=== PATIENT | male | born 1995 | race Hispanic/Latino ===

== ENCOUNTER 2020-10-02 02:20 | Inpatient (IN) | payer SELFPAY ==
[~2020-10-02] VITALS: Ht 167.6 cm; Wt 65.8 kg
[2020-10-02] VITALS (22 sets, daily range): BP systolic 111–140; BP diastolic 46–87
[2020-10-02] MEDS ORDERED: FENTANYL CITRATE PF 50 MCG/1 ML 2ML VIAL ONE ×2 (02:24→10:30)
[2020-10-02 02:48] LABS: BASOPHILS % (AUTO) 0.3 % (0.0-5.0); EOSINOPHILS % (AUTO) 0.7 % (0.0-8.0); HEMATOCRIT 42.4 % (42-54); LYMPHOCYTES % (AUTO) 35.7 % (21.0-51.0); MEAN CORPUSCULAR HEMOGLOBIN 32.1 pg (27.0-33.0); MEAN CORPUSCULAR HGB CONC 35.6 g/dL (32.0-36.0); MEAN CORPUSCULAR VOLUME 90.2 fL (79-99); MONOCYTES % (AUTO) 6.1 % (3.0-13.0); NEUTROPHILS % (AUTO) 56.6 % (40.0-77.0); PLATELET COUNT (AUTO) 220 K/uL (130-400); RED CELL DISTRIBUTION WIDTH 11.8 % (11.0-15.5); WHITE BLOOD COUNT (AUTO) 12.1 K/uL (4.8-10.8)
[2020-10-02 02:56] LABS: CREATININE 1.1 mg/dL (0.5-1.5); POTASSIUM 3.2 mmol/L (3.5-5.1)
[2020-10-02 03:01] LABS: ALBUMIN 3.9 g/dL (3.5-5.0); BILIRUBIN,TOTAL 0.6 mg/dL (0.2-1.0); TOTAL PROTEIN, SERUM 7.9 g/dL (6.0-8.3)
[2020-10-02] MEDS ORDERED: OXYMETAZOLINE HCL SPRAY 15 ML BOTTLE ONE (03:02)
[2020-10-02] MEDS ORDERED: SODIUM CHLORIDE 0.9% 1000ML 1,000 ML IV SCH (03:30)
[2020-10-02] MEDS ORDERED: ACETAMINOPHEN 325 MG TAB PO PRN ×2 (03:30)
[2020-10-02] MEDS ORDERED: NITROGLYCERIN 0.4 MG SL TAB SL PRN (03:30)
[2020-10-02] MEDS ORDERED: POTASSIUM CHLORIDE 10MEQ/100ML 10 MEQ/100 ML ML IV SCH (03:30)
[2020-10-02 03:51] LABS: INR 0.98 (0.85-1.15); PROTHROMBIN TIME 10.7 SEC (9.6-11.6)
[2020-10-02] MEDS ORDERED: POTASSIUM CHLORIDE 20MEQ/100ML 100 ML IV ONE (03:51)
[2020-10-02] MEDS ORDERED: MORPHINE SULFATE 2 MG/ML 1ML SYG ONE (03:52)
[2020-10-02] MEDS ORDERED: SODIUM CHLORIDE 0.9% 1000ML 1,000 ML IV ONE (03:52)
[2020-10-02 03:53] LABS: PARTIAL THROMBOPLASTIN TIME 23.7 SEC (26.3-35.5)
[2020-10-02 06:00] LABS: APPEARANCE,URINE Clear (CLEAR); BILIRUBIN,URINE Negative (NEGATIVE); COLOR,URINE Yellow (YELLOW); GLUCOSE, URINE (UA) Negative (NEGATIVE); KETONES,URINE Trace mg/dL (NEGATIVE); LEUKOCYTE ESTERASE ,URINE Negative (NEGATIVE); NITRATE,URINE Negative (NEGATIVE); OCCULT BLOOD,URINE Negative (NEGATIVE); PROTEIN,URINE Negative (NEGATIVE); UROBILINOGEN,URINE 0.2 mg/dL (0.2-1.0)
[2020-10-02 06:08] LABS: AMPHET/METH SCREEN,URINE NEGATIVE (NEGATIVE); BARBITURATE SCREEN, URINE NEGATIVE (NEGATIVE); BENZODIAZEPINES SCREEN,URINE NEGATIVE (NEGATIVE); CANNABINOID SCREEN,URINE NEGATIVE (NEGATIVE); COCAINE SCREEN,URINE NEGATIVE (NEGATIVE); OPIATE SCREEN,URINE NEGATIVE (NEGATIVE); PHENCYCLIDINE SCREEN,URINE NEGATIVE (NEGATIVE)
[2020-10-02] MEDS: MORPHINE SULFATE 2 MG/ML 1ML SYG IM PRN ×2 (08:09→20:43)
[2020-10-02] MEDS: FAMOTIDINE/PF 20 MG/2 ML VIAL IV SCH ×2 (09:00→20:42)
[2020-10-02] MEDS ORDERED: PROPOFOL 10 MG/ML 20ML VIAL IV ONE (10:29)
[2020-10-02] MEDS ORDERED: LIDOCAINE PF 2% 5ML ABBOJECT ONE ×2 (10:29)
[2020-10-02] MEDS ORDERED: MIDAZOLAM HCL 1 MG/ML 2ML VIAL ONE (10:30)
[2020-10-02] MEDS ORDERED: CEFAZOLIN SODIUM 1 GM VIAL ONE (10:32)
[2020-10-02] MEDS ORDERED: ROPIVACAINE 0.5% 5MG/ML 30ML IJ ONE (10:49)
[2020-10-02] MEDS ORDERED: SODIUM CHLORIDE 0.9% 10 ML VIAL ONE (10:50)
[2020-10-02] MEDS ORDERED: DEXAMETHASONE SOD PHOSPHATE 10MG/ML 1ML VIAL ONE (11:11)
[2020-10-02] MEDS ORDERED: ONDANSETRON HCL 4 MG/2 ML VIAL ONE (11:11)
[2020-10-02] MEDS ORDERED: MEPERIDINE-PF 25 MG/ML SYG ONE (12:03)
[2020-10-02] MEDS: SODIUM CHLORIDE 0.9% 1000ML 1,000 ML IV SCH (14:29)
[2020-10-02] MEDS: ONDANSETRON HCL 4 MG/2 ML VIAL IV PRN (20:42)
[2020-10-03] MEDS: SODIUM CHLORIDE 0.9% 1000ML 1,000 ML IV SCH ×3 (00:06→21:15)
[2020-10-03 03:27] VITALS: BP 121/72
[2020-10-03 04:33] LABS: BASOPHILS % (AUTO) 0.1 % (0.0-5.0); EOSINOPHILS % (AUTO) 1.8 % (0.0-8.0); HEMATOCRIT 32.1 % (42-54); LYMPHOCYTES % (AUTO) 9.5 % (21.0-51.0); MEAN CORPUSCULAR HGB CONC 34.9 g/dL (32.0-36.0); MEAN CORPUSCULAR VOLUME 91.7 fL (79-99); MONOCYTES % (AUTO) 9.3 % (3.0-13.0); PLATELET COUNT (AUTO) 151 K/uL (130-400); RED CELL DISTRIBUTION WIDTH 11.8 % (11.0-15.5); WHITE BLOOD COUNT (AUTO) 13.2 K/uL (4.8-10.8)
[2020-10-03 05:16] LABS: ALBUMIN 3.2 g/dL (3.5-5.0); CREATININE 0.9 mg/dL (0.5-1.5); MAGNESIUM 2.8 mg/dL (1.80-2.40); POTASSIUM 3.8 mmol/L (3.5-5.1); TOTAL PROTEIN, SERUM 6.4 g/dL (6.0-8.3)
[2020-10-03] MEDS: ONDANSETRON HCL 4 MG/2 ML VIAL IV PRN (05:54)
[2020-10-03] MEDS: MORPHINE SULFATE 2 MG/ML 1ML SYG IM PRN ×3 (05:55→19:55)
[2020-10-03 08:00] VITALS: BP 127/70
[2020-10-03] MEDS: FAMOTIDINE/PF 20 MG/2 ML VIAL IV SCH ×2 (08:37→19:53)
[2020-10-03] MEDS ORDERED: IBUP-2077 PO (09:43)
[2020-10-03 12:00] VITALS: BP 135/84
[2020-10-03] MEDS ORDERED: HYDROMORPHONE 1 MG/1 ML AMP IVP SCH (13:45)
[2020-10-03 17:05] VITALS: BP 138/88
[2020-10-03 20:28] VITALS: BP 126/62
[2020-10-03] MEDS ORDERED: ACETAMINOPHEN-CODEINE 300/30MG TAB PO PRN (22:00)
[2020-10-04] VITALS (7 sets, daily range): BP systolic 99–129; BP diastolic 59–77
[2020-10-04] MEDS ORDERED: MORPHINE SULFATE 2 MG/ML 1ML SYG IV PRN (00:30)
[2020-10-04] MEDS ORDERED: HYDROMORPHONE 1 MG/1 ML AMP ONE (03:11)
[2020-10-04 03:42] LABS: HEMATOCRIT 31.9 % (42-54); MEAN CORPUSCULAR HEMOGLOBIN 31.9 pg (27.0-33.0); MEAN CORPUSCULAR HGB CONC 34.8 g/dL (32.0-36.0); MEAN CORPUSCULAR VOLUME 91.7 fL (79-99); PLATELET COUNT (AUTO) 125 K/uL (130-400); RED BLOOD CELL COUNT(AUTO) 3.48 MIL/uL (4.50-6.20); WHITE BLOOD COUNT (AUTO) 11.3 K/uL (4.8-10.8)
[2020-10-04 03:53] LABS: CREATININE 0.9 mg/dL (0.5-1.5); POTASSIUM 3.5 mmol/L (3.5-5.1)
[2020-10-04 03:57] LABS: BILIRUBIN,TOTAL 0.8 mg/dL (0.2-1.0); TOTAL PROTEIN, SERUM 6.5 g/dL (6.0-8.3)
[2020-10-04] MEDS ORDERED: ACETAMINOPHEN-CODEINE 300/30MG TAB PO PRN ×2 (04:00)
[2020-10-04 04:09] LABS: LYMPHOCYTES % (MANUAL) 26 % (22-44); MAN.DIFF COMMENT-IMPRESSION MANUAL DIFFERENTIAL; MONOCYTES % (MANUAL) 3 % (2-9); SEGMENTED NEUTROPHILS % 71 % (40-70)
[2020-10-04] MEDS: ACETAMINOPHEN-CODEINE 300/30MG TAB PO PRN ×2 (08:04→14:43)
[2020-10-04] MEDS: FAMOTIDINE/PF 20 MG/2 ML VIAL IV SCH ×2 (08:04→19:56)
[2020-10-04] MEDS: TRAMADOL HCL 50 MG TABLET PO SCH ×2 (09:06→19:56)
[2020-10-04] MEDS: HEPARIN SODIUM 5000UNIT/ML 1ML VIAL SQ SCH ×2 (13:11→19:57)
[2020-10-04] MEDS ORDERED: LIDOCAINE HCL-MPF 1% 2ML VIAL IV PRN (23:45)
[2020-10-04] MEDS ORDERED: POTASSIUM CHLORIDE 20 MEQ ERTAB PO PRN (23:45)
[2020-10-04] MEDS ORDERED: POTASSIUM CHLORIDE 10% ELIXIR 20 MEQ/15 ML UDCUP PO PRN (23:45)
[2020-10-04] MEDS ORDERED: POTASSIUM CHLORIDE 20MEQ/100ML 100 ML IV PRN (23:45)
[2020-10-05] MEDS ORDERED: POTASSIUM CHLORIDE 20 MEQ ERTAB PO ONE (00:16)
[2020-10-05] MEDS: ACETAMINOPHEN-CODEINE 300/30MG TAB PO PRN ×2 (00:25→07:44)
[2020-10-05 04:08] VITALS: BP 116/70
[2020-10-05 04:28] LABS: BASOPHILS % (AUTO) 0.2 % (0.0-5.0); EOSINOPHILS % (AUTO) 1.1 % (0.0-8.0); HEMATOCRIT 31.6 % (42-54); MEAN CORPUSCULAR HEMOGLOBIN 31.1 pg (27.0-33.0); MEAN CORPUSCULAR HGB CONC 33.9 g/dL (32.0-36.0); MEAN CORPUSCULAR VOLUME 91.9 fL (79-99); MONOCYTES % (AUTO) 8.2 % (3.0-13.0); NEUTROPHILS % (AUTO) 64.1 % (40.0-77.0); PLATELET COUNT (AUTO) 155 K/uL (130-400); RED BLOOD CELL COUNT(AUTO) 3.44 MIL/uL (4.50-6.20); RED CELL DISTRIBUTION WIDTH 11.5 % (11.0-15.5); WHITE BLOOD COUNT (AUTO) 8.9 K/uL (4.8-10.8)
[2020-10-05 04:47] LABS: POTASSIUM 3.7 mmol/L (3.5-5.1)
[2020-10-05 08:14] VITALS: BP 125/86
[2020-10-05] MEDS: FAMOTIDINE/PF 20 MG/2 ML VIAL IV SCH ×2 (10:16→21:17)
[2020-10-05] MEDS: TRAMADOL HCL 50 MG TABLET PO SCH ×2 (10:16→21:16)
[2020-10-05] MEDS: HEPARIN SODIUM 5000UNIT/ML 1ML VIAL SQ SCH ×2 (10:26→21:17)
[2020-10-05 11:46] VITALS: BP 106/71
[2020-10-05] MEDS ORDERED: IBUPROFEN 800 MG TAB ONE (13:43)
[2020-10-05] MEDS ORDERED: IBUPROFEN 800 MG TAB PO PRN (13:45)
[2020-10-05] MEDS ORDERED: KETOROLAC TROMETHAMINE 15MG/ML IV PRN (14:45)
[2020-10-05 16:29] VITALS: BP 117/75
[2020-10-05 20:02] VITALS: BP 128/78
[2020-10-06 00:40] VITALS: BP 113/61
[2020-10-06 03:36] LABS: BASOPHILS % (AUTO) 0.3 % (0.0-5.0); HEMATOCRIT 30.3 % (42-54); LYMPHOCYTES % (AUTO) 38.3 % (21.0-51.0); MEAN CORPUSCULAR HGB CONC 35.6 g/dL (32.0-36.0); MEAN CORPUSCULAR VOLUME 89.9 fL (79-99); NEUTROPHILS % (AUTO) 50.7 % (40.0-77.0); PLATELET COUNT (AUTO) 180 K/uL (130-400); RED BLOOD CELL COUNT(AUTO) 3.37 MIL/uL (4.50-6.20); RED CELL DISTRIBUTION WIDTH 11.5 % (11.0-15.5); WHITE BLOOD COUNT (AUTO) 7.6 K/uL (4.8-10.8)
[2020-10-06 03:44] LABS: CREATININE 0.8 mg/dL (0.5-1.5)
[2020-10-06 04:13] VITALS: BP 110/69
[2020-10-06 08:37] VITALS: BP 110/61
[2020-10-06] MEDS ORDERED: FAMOTIDINE 20MG TAB 20 MG TAB ONE (09:47)
[2020-10-06] MEDS: TRAMADOL HCL 50 MG TABLET PO SCH (10:05)
[2020-10-06] MEDS: HEPARIN SODIUM 5000UNIT/ML 1ML VIAL SQ SCH (10:09)
[2020-10-06 11:29] VITALS: BP 110/65
[2020-10-06] MEDS ORDERED: FAMOTIDINE 20MG TAB 20 MG TAB PO SCH (21:00)
== END 2020-10-06 15:00 | disposition home or self-care (01) | DRG 482 ==
LOC: EDH 02:20 → EDHIP 02:21 → 4BH 03:44
PROVIDERS: ADMIT Hospitalist; ATTEND Hospitalist
PROC: 0QS906Z Reposition Left Femoral Shaft with Intramedullary Internal Fixation Device, Open Approach (ICD-10-PCS; principal; 2020-10-02 10:28)
PROC: 3E0T3BZ Introduction of Anesthetic Agent into Peripheral Nerves and Plexi, Percutaneous Approach (ICD-10-PCS; 2020-10-02 10:28)
PROC: 3E0T33Z Introduction of Anti-inflammatory into Peripheral Nerves and Plexi, Percutaneous Approach (ICD-10-PCS; 2020-10-02 10:28)
DX: S72.302A Unspecified fracture of shaft of left femur, initial encounter for closed fracture (principal); F10.129 Alcohol abuse with intoxication, unspecified; D72.829 Elevated white blood cell count, unspecified; E87.6 Hypokalemia; F17.210 Nicotine dependence, cigarettes, uncomplicated; Y90.4 Blood alcohol level of 80-99 mg/100 ml; Z20.822 Contact with and (suspected) exposure to COVID-19; W17.89XA Other fall from one level to another, initial encounter; Y93.89 Activity, other specified; Y92.098 Other place in other non-institutional residence as the place of occurrence of the external cause; Y99.8 Other external cause status
CPT/HCPCS: 36415; 71045; 73552; 80048; 80053; 80305; 81003; 82330; 83735; 85025; 85610; 85730; 87040; 87426; 93005; 97039; G0378; J0690; J1100; J1170; J1644; J1885; J2001; J2175; J2250; J2405; J2704; J2795; J3010; J3480; J3490; J7030; J7120; U0003